=== PATIENT | female | born 2000 | race Caucasian/White ===

== ENCOUNTER 2024-08-30 12:37 | Emergency (ER) | payer OTHER, SELFPAY ==
[2024-08-30 13:11] VITALS: BP 130/88
[2024-08-30 13:28] LABS: % Basophils 0.5 % (0-2); % Eosinophils 0.7 % (0-6); % Immature Granulocytes 0.1 % (0-0.5); % Monocytes 7.9 % (1.7-9.3); % Neutrophils 66.8 % (42.2-75.2); Absolute Eosinophils 0.1 10^3/uL (0-0.7); Absolute Lymphocytes 1.8 10^3/uL (1.2-3.4); Absolute Monocytes 0.6 10^3/uL (0.1-0.6); Hematocrit 39.2 % (37.0-47.0); Mean Corp Hgb Conc. 33.2 g/dL (33.0-37.0); Mean Corpuscular Hgb 29.7 pg (27.0-31.0); Mean Corpuscular Volume 89.5 fL (81.0-99.0); Nucleated Red Blood Cells % 0 %; Platelet Count 311 10^3/uL (130-400); Red Blood Cell Count 4.38 10^6/uL (4.20-5.40); Red Cell Dist. Width 11.7 % (11.5-14.5); White Blood Cell Count 7.5 10^3/uL (4.8-10.8)
[2024-08-30 13:43] LABS: HCG, Serum Qualitative Screen Negative
[2024-08-30 13:47] LABS: ALT (SGPT) 14 U/L (0-35); AST (SGOT) 22 U/L (14-36); Albumin 4.7 g/dl (3.5-5.0); Alkaline Phosphatase 60 U/L (38-126); Blood Urea Nitrogen 18 mg/dl (7-17); Calcium 9.2 mg/dl (8.4-10.2); Carbon Dioxide 25 mmol/L (22-30); Chloride 103 mmol/L (98-107); Glucose 90 mg/dl (70-99); Potassium 3.9 mmol/L (3.5-5.1); Sodium 138 mmol/L (135-145); Total Bilirubin 0.5 mg/dl (0.2-1.3); Total Protein 7.5 g/dl (6.3-8.2); eGFR > 60.00
--- NOTE | 2024-08-30 15:56 | ED.GENMED ---
History of Present Illness
General
Chief Complaint: Dizziness
Source: patient
Time Seen by Provider: 08/30/24 15:34
History of Present Illness
History of Present Illness:
23-year-old female with a history of heavy periods thought to be due to either endometriosis or fibroids although she has not had an ultrasound to evaluate, states that her period began about 3 days ago as expected but became extremely heavy today
associated with clots. She has had clots in the past but notes that the bleeding seems to be heavier which concerned her. She also notes very minor lightheadedness and dyspnea earlier now resolved. She denies bleeding elsewhere, abdominal pain,
chest pain, or other complaints.
Past History
Past History
ED Past Medical History: None
ED Past Surgical History: Orthopedic
Social History
Tobacco: Non-smoker
Alcohol: Occasional
Drug: None
Personal: Single
Living: alone
Phy Exam
Physical Exam
Physical Exam:
GENERAL: Alert , in no apparent distress
EYE: pupils equal and reactive
NECK: Supple, no significant adenopathy.
ENT: o/p clr, mmm.
CARDIAC: Regular rate and rhythm .
LUNGS: Clear breath sounds bilaterally, no acute respiratory distress, no wheezes/rales/rhonchi
ABDOMEN: Soft, without focal tenderness, no r/g, no cvat
NEUROLOGICAL: Alert and oriented, no focal neuro deficits
SKIN: Warm and dry, skin intact.
MUSCULOSKELETAL: No edema, well perfused.
PSYCH: Normal and appropriate interaction.
Course
Orders/Labs/Results
Orders:
Orders
08/30/24 13:15
Test Result ONCE
08/30/24 13:18
Type+Screen Urgent
Complete Blood Count/With Diff Urgent
Comprehensive Metabolic Panel Urgent
HCG, Serum Qualitative Screen Urgent
08/30/24 15:55
0.9% Sodium Chloride 1000 ml [Nss] 1,000 ml IV BOLUS
US Pelvis Only (non-obstetric) Urgent
Comment:
Reason For Exam: bleeding
08/30/24 16:09
ABO2 Urgent
BBK Wristband Number:
Associate notified that ABO2 has been ordered: JUAN
Date: 08/30/24
Time: 13:30
Supervisor Billposting ID: [id number]
Abnormal Lab Results
08/30/24
13:18
BUN 18 H mg/dl
(7-17)
08/30/24 13:18
08/30/24 13:18
Vital Signs
Initial and Last Documented VS:
Initial Vital Signs
Temp Pulse Resp BP Pulse Ox
98 F 77 18 130/88 99
08/30/24 13:11 08/30/24 13:11 08/30/24 13:11 08/30/24 13:11 08/30/24 13:11
Last Documented Vital Signs
Temp Pulse Resp BP Pulse Ox
98 F 78 18 116/69 100
08/30/24 13:11 08/30/24 17:35 08/30/24 17:35 08/30/24 17:35 08/30/24 17:35
*Critical Care Note
Total Time (30-74mins, 75-104mins- exclusive of procedures): Not Applicable
Update Note
Update Note:
Patient presents to the Emergency Department with vaginal bleeding____
Number and Complexity of Problems Addressed at the Encounter
� Chronic conditions affecting care:
� Acute Exacerbation and/or Progression of Chronic Illness:
� Differential Diagnosis includes: , fibroids, dysfunctional uterine bleeding, ectopic, etc. etc.
Amount and/or Complexity of Data to be Reviewed and Analyzed
� I performed an independent evaluation of and my interpretation is:
EKG:
CT:
Xrays:
Laboratory Studies:hgb nl
Other:us--Right ovarian complex cystic structure measuring 2 cm, consistent with hemorrhagic/involuting follicle. Small amount of free pelvic fluid.
Bilateral ovarian blood flow documented.
Unremarkable uterus, endometrium, and left ovary.
� Review of other/old records reveals:
� Clinical information was obtained by an independent historian:
� Prescriptions/Medications Considered but not given:
� Further testing considered but not performed:
Risk of Complications and/or Morbidity or Mortality of Patient Management
� Social determinants of health affecting care:
� Discussion with other providers (PCP, Hospitalists, Consultants, etc):
� Escalation of care including admission/observation vs risk of discharge considered: Patient remained stable here. Case discussed with on-call [employer] physician for her practice, who is aware of ultrasound, history, physical,
vitals, labs, etc. Recommended Aygestin taper, 5 mg 3 times daily for 3 days, then 5 mg twice daily for 3 days, then 5 mg daily for 3 days which I have written for. Long discussion with patient regarding importance of follow-up and recent return
to the ER including her ultrasound report
ED Attending Note
-
Portions of this chart may have been created with voice recognition software.� Occasional wrong word or��sound alike� substitutions may have occurred due to the inherent limitations of voice recognition software.
Discharge Plan
Departure
Patient Disposition: Home (Routine Discharge)
Date of Disposition: 08/30/24
Time of Disposition: 18:26
Patient with high blood pressure during this ER visit?: Yes
Condition: Good
Discharge Problem:
Vaginal bleeding
Instructions: Heavy periods, BLOOD PRESSURE
Prescriptions:
New
norethindrone acetate 5 mg tablet
See Rx Instructions .ROUTE .COMPLEX Qty: 18 0RF
Rx Instructions:
5 mg orally tidX3d, then 5mg bidX3d, then 5mg qd X3d
Referrals:
Kristi Green MD [Family Provider] -
Activity Restrictions/Additional Instructions:
PLEASE SEE YOUR [employer] DOCTOR THIS WEEK. THIS IS VERY IMPORTANT. PLEASE BRING YOUR ULTRASOUND REPORT ATTACHED HERE WITH YOU TO THAT APPOINTMENT. IF YOU DEVELOP FEVER, ABDOMINAL OR PELVIC PAIN, PERSISTENT OR INCREASING BLEEDING, DIZZINESS, SHORTNESS
OF BREATH, OR OTHER WORRISOME SIGNS, PLEASE RETURN TO THE ER IMMEDIATELY
Interventions
Interventions:
*Risk Screen - Suicide Last Done: 08/30/24 13:11
*General Assessment Last Done: 08/30/24 13:11
*Neglect/Abuse Screening Last Done: 08/30/24 13:11
ED- Neurological Assessment Last Done: 08/30/24 15:40
ED Swallowing Screen Last Done: 08/30/24 15:40
Discharge Date and Time
Print Language: CITIZEN OF [place]
[2024-08-30] MEDS: NSS 1000 IV (16:09)
[2024-08-30 16:14] VITALS: BP 120/80
[2024-08-30 16:16] VITALS: BMI 23.9
[2024-08-30 17:35] VITALS: BP 116/69
[2024-08-30 18:00] VITALS: BP 106/58
== END 2024-08-30 19:11 | disposition home or self-care (01) ==
LOC: EMR 12:37
PROVIDERS: Registered Nurse; EMERGENCY PHYSICIAN Emergency Medicine; FAMILY PHYSICIAN Internal Medicine
DX: N93.9 Abnormal uterine and vaginal bleeding, unspecified (principal); R42 Dizziness and giddiness
CPT/HCPCS: 99284; 96360; 76856; 80053; 84703; 85025; 86850; 86900; 86901